=== PATIENT | female | born 1950 | race Two or more races ===

== ENCOUNTER 2023-06-30 11:05 | Emergency (ER) | payer OTHER ==
[~2023-06-30] VITALS: Ht 165.1 cm; Wt 59.0 kg
[2023-06-30] MEDS ORDERED: LEVOTHYROXINE25 MCG (11:28)
== END 2023-06-30 14:50 | disposition home or self-care (01) ==
LOC: ER 11:05
DX: S93.402A Sprain of unspecified ligament of left ankle, initial encounter (principal); W18.39XA Other fall on same level, initial encounter; Y93.89 Activity, other specified; Y92.488 Other paved roadways as the place of occurrence of the external cause; Z88.2 Allergy status to sulfonamides